=== PATIENT | male | born 1940 | race African-American/Black ===

== ENCOUNTER 2016-09-22 08:53 | Inpatient (IN) ==
[2016-09-22] MEDS ORDERED: ONDANSETRON 4 MG/2 ML VIAL IV PRN (09:05)
[2016-09-22] MEDS ORDERED: GLUCAGON 1 MG VIAL IM PRN (09:05)
[2016-09-22 10:52] LABS: Basophils % 0.4 % (0.0-0.8); Eosinophils % 8.9 % (0.00-10.9); Hematocrit 40.4 VOL% (42.0-52.0); Hemoglobin 13.3 GM/DL (14.0-18.0); Immature Granulocytes % 1.2 %; Immature Granulocytes Absolute 0.13 #; Lymphocytes # 1.8 10*3/uL (1.4-4.0); Lymphocytes % 15.8 % (21.2-54.2); Mean Corpuscular HGB Conc 32.9 GM/DL (32-36); Mean Corpuscular Hemoglobin 26 PG (27-34); Mean Platelet Volume 11.9 FL (9.6-12.0); Monocytes # 1.2 10*3/uL (0.11-0.8); Monocytes % 10.6 % (1.7-12.7); Neutrophils % 63.1 % (38.7-73.9); Platelet Count 173 T/CUMM (130-400); Red Blood Count 5.05 MC/CUMM (3.8-5.5); Red Cell Distribution Width 15.6 % (9.3-17.3); White Blood Count 11.1 T/CUMM (4-12)
[2016-09-22] MEDS: SODIUM CHLORIDE 0.9% 1,000 ML IV SCH ×2 (10:59→19:06)
[2016-09-22 11:32] LABS: Albumin 3.7 G/DL (3.4-5.0); Bilirubin,Total 0.7 MG/DL (0.2-1.0); Calcium 9.5 MG/DL (8.5-10.1); Osmolality,Calculated 307.8 MOS/KG (273-304); Potassium 3.9 MMOL/L (3.5-5.1); Total Protein 6.7 G/DL (6.4-8.3)
--- NOTE | 2016-09-22 12:20 | XRay Report ---
XR chest 2V Indication: Shortness of breath Comparison: None available Findings: The heart and mediastinum are normal in size and configuration. The pulmonary vascularity is normal in caliber. Linear density is present in the left lung base. No other lung infiltrates, effusions, pneumothorax or other abnormality is demonstrated. Impression: Linear density left lung base, may indicate scarring or atelectasis. No other abnormality seen. PROCEDURE INTERPRETED AT [facility] DEPARTMENT OF RADIOLOGY Final Report Signed by: Dr. Wil Greenwood
[2016-09-22] MEDS: INSULIN REGULAR 100 UNIT/ML SUBCUT SCH ×3 (12:44→21:49)
--- NOTE | 2016-09-22 14:01 | Family Practice History&Phys ---
Assessment and Plan (1) Extreme hyperglycemia Status: Acute Assessment and plan: Patient has a new onset of type 2 diabetes mellitus with blood sugar in the 600 range. Will admit for control of diabetes and further evaluation. Have ordered a beta hydroxybutyric acid to check for acidosis Current Visit: Yes (2) Volume depletion secondary to diabetus Status: Acute Assessment and plan: We will start IV rehydration and evaluate further. Current Visit: Yes (3) Renal insufficiency Status: Acute Assessment and plan: New onset renal insufficiency. Hopefully this will improve with volume replacement. We will monitor closely and evaluate further as needed Current Visit: Yes (4) Weakness and weight loss Status: Acute Assessment and plan: Most of these changes are probably secondary to the extreme elevated blood sugars. Will monitor closely Current Visit: Yes (5) Acute cervical pain Status: Acute Assessment and plan: We will obtain x-rays of the cervical spine and monitor Current Visit: Yes (6) Hyperuricemia Status: Chronic Assessment and plan: We will continue present treatment plan. This has been stable Current Visit: Yes (7) Hypertension gastroesophageal reflux Status: Chronic Assessment and plan: Stable at present Current Visit: Yes History of Present Illness Chief complaint: Extreme hyperglycemia with volume depletion History of present illness: Mr. Gleason is a 76 year old male Patient is a 76-year-old black male well-known to me who was seen in the clinic complaining of some left neck pain, weakness, and weight loss. I had not seen the patient in over a year. He apparently had been seeing a physician closer to his home who works through the [facility] [employer] [facility]. Patient nor remember if he has had any lab done in the last year. Patient was seen for his neck pain and apparently has had a recent rash on arms and legs which was treated by Dr. Casey a local supervisor [employer]. I do not have access to those records from me the physician. I am not sure if patient received steroids for treatment of his dermatitis which certainly could explain the extreme elevation of his blood sugar. states that patient has been lethargic and sleeping most of the time over the last several weeks. She thinks that he has lost around 15-20 pounds. No previous history of diabetes but does have a family history of diabetes. I obtain lab studies in the office and his sugar was a 660. Hemoglobin A1c was at 9.2 which equates to a blood sugar of 217 on average. states that he has taken various medicines for this rash and I would be suspicious again that he was possibly given steroids which would have exacerbated his condition. He was also noted to have a elevated creatinine at 2.6 which is new for this patient. Hopefully this is related to volume depletion and will correct but will need to monitor and evaluate closely. In view of the extreme shiver and symptoms patient was seen this a.m. and I am admitting him for control of his diabetes further evaluation and IV fluid. Home Medications Medication Instructions Recorded Confirmed Type Allopurinol 300 mg PO DAILY 09/22/16 09/22/16 History Aspirin [Aspirin EC] 81 mg PO DAILY 09/22/16 09/22/16 History Bisoprolol/Hctz 5-6.25 [Ziac 5 - 6.25 mg PO DAILY 09/22/16 09/22/16 History 5-6.25] Brimonidine 0.2% Oph Soln 1 drop BOTH EYES TID 09/22/16 09/22/16 History [Alphagan P 0.2% Oph Soln] Dorzolamide HCl/Timolol Maleat 1 drop BOTH EYES BEDTIME 09/22/16 09/22/16 History [Dorzolamide/Timolol Oph Soln] Ranitidine Tab [Zantac Tab] 150 mg PO BID 09/22/16 09/22/16 History cloNIDine TAB [Catapres Tab] 0.2 mg PO BEDTIME 09/22/16 09/22/16 History hydrOXYzine HCl [Hydroxyzine HCl] 25 mg PO QID PRN 09/22/16 09/22/16 History Allergies Allergy/AdvReac Type Severity Reaction Status Date / Time No Known Allergies Allergy Verified 09/22/16 10:12 Medical,Surgical,& Family Hx - Medical History Cardio: History of: Hypertension Endocrine: History of: Diabetes Mellitus (NIDDM) Renal: History of: Renal Failure Gastrointestinal: History of: GI Problems (ulcer) - Family History Family History: Reports;: Family Diabetes (mom), Family Hypertension - Social History Smoking Status: Never smoker Frequency of Alcohol Use: None Type of Drug Use: None Marital Status: Lives With:: Spouse Functional capacity: independent ambulation Exam - Constitutional Vitals: Period Temp Pulse Resp BP Sys/Rolon Pulse Ox Last 24 Hr 96.6 F 74 19 161/79 100 General appearance: no acute distress - Head Head exam: Present: normal inspection - Eye Pupils: Present: JUNE - ENT ENT exam: Present: normal exam - Neck Neck exam: Present: normal inspection, other (Patient has tenderness on palpation over the lateral left neck over the region of the thoracic process of the mid cervical region) - Respiratory Respiratory exam: Present: clear to auscultation bilaterally - Cardiovascular Cardiovascular exam: Present: regular rate and rhythm - GI/Abdominal GI/Abdominal exam: Present: normal bowel sounds, soft - Extremities Exam Extremities exam: Present: normal inspection - Back Exam Back exam: Present: normal inspection - Neurological Exam Neurological exam: Present: alert, oriented X3 - Psychiatric Psychiatric exam: Present: normal affect - Skin Skin exam: Present: dry Results - Labs CBC & BMP: 09/22/16 10:44 09/22/16 10:44
[2016-09-22] MEDS: BISOPROLOL/HCTZ 5-6.25 MG TABLET PO SCH (14:37)
[2016-09-22] MEDS: ALLOPURINOL 300 MG TABLET PO SCH (14:37)
[2016-09-22] MEDS: ASPIRIN EC 81 MG TABLET PO SCH (14:37)
[2016-09-22] MEDS: BRIMONIDINE 0.2% OPH SOLN 5 ML BOTTLE BOTH EYES SCH ×2 (14:38→21:48)
--- NOTE | 2016-09-22 15:42 | Ultrasound Report ---
Exam: US renal Bilateral Date: 09/22/2016 2:17 PM Indication: New onset renal insufficiency Comparison: None Findings: Right kidney. 8.9 x 4.6 x 3.7 cm Left kidney. 8.4 x 4.9 x 4.9 cm. There is no obvious hydronephrosis or perinephric fluid collection within either kidney with increased echogenicity of present bilaterally. Impression: 1. Medical renal disease in the kidneys bilaterally Ultrasound images were stored and captured PROCEDURE INTERPRETED AT [facility] DEPARTMENT OF RADIOLOGY Final Report Signed by: Dr. Steven Borges
--- NOTE | 2016-09-22 15:43 | XRay Report ---
Exam: XR cervical spine complete Date: 09/22/2016 2:12 PM Indication: Pain Comparison: None Technical: AP lateral oblique image open-mouth odontoid view Findings: 7 cervical vertebral bodies are demonstrated. There is disc space narrowing and degenerative spondylosis C5-6 and C6-7. Vertebral body heights are maintained. Lateral masses and odontoid are intact the neural foramina canals are patent bilaterally. Posterior elements are intact. No prevertebral soft tissue abnormality. Lung apices are unremarkable. Impression: 1. Degenerative spondylosis and intervertebral discogenic disease at C5-6 and C6-7 2. No fracture dislocation If additional imaging is warranted MRI is recommended PROCEDURE INTERPRETED AT [facility] DEPARTMENT OF RADIOLOGY Final Report Signed by: Dr. Steven Borges
[2016-09-22 16:47] LABS: Apearance,Urine CLEAR (Clear); Bilirubin,Urine Negative (Negative); Blood, Urine Moderate mg/dL (Negative); Glucose,Urine (UA) >=500 mg/dL (Negative); Ketones,Urine Negative (Negative); Nitrite,Urine Negative (Negative); Protein,Urine Negative; RBC,Urine <1 /HPF (0-4); Squamous Epithelial Cell,Urine Occasional /HPF (0-10); Urine Color Straw (Yellow); Urine Specific Gravity 1.021 (1.001-1.035); WBC,Urine 1 /HPF (0-6)
[2016-09-22] MEDS: glyBURIDE 5 MG TABLET PO SCH (17:00)
[2016-09-22] MEDS: DOCUSATE SODIUM 100 MG CAPSULE PO SCH (21:46)
[2016-09-22] MEDS: INSULIN GLARGINE 100 UNIT/ML SUBCUT SCH (21:47)
[2016-09-22] MEDS: hydrOXYzine HCL 25 MG TABLET PO PRN (21:48)
[2016-09-22] MEDS: DORZOLAMIDE/TIMOLOL OPH SOLN 10 ML BOTTLE BOTH EYES SCH (21:48)
[2016-09-23 04:48] LABS: Risk Ratio 2.94; VLDL CHOLESTEROL 28.4 MG/DL
[2016-09-23 05:21] LABS: Albumin 2.6 G/DL (3.4-5.0); Bilirubin,Total 0.5 MG/DL (0.2-1.0); Calcium 7.9 MG/DL (8.5-10.1); Potassium 3.6 MMOL/L (3.5-5.1); Total Protein 4.6 G/DL (6.4-8.3)
[2016-09-23 05:30] LABS: Free T4 (Free Thyroxine) 2.34 NG/DL (0.76-1.46); Thyroid Stimulating Hormone 0.018 uIU/ml (0.358-3.74)
--- NOTE | 2016-09-23 07:46 | Family Practice Progress Note ---
Family Practice - PN: Subj Interval history: Patient came in last night with episode of severe hypoglycemia and glycosuria. He was nonketotic. His CBC was normal and he also had significant renal insufficiency with creatinine 2.60. This has come down to 2.2 this morning, a great improvement. His blood sugars are back down to 175 at this time but still highly fluctuating. Is alert and arousable easily. His vital signs are stable at present with a blood pressure 124/58 and he is afebrile. We will continue to continue to monitor throughout the day watch his blood sugars carefully Exam (Progress Note) - Constitutional Vitals: Period Temp Pulse Resp BP Sys/Rolon Pulse Ox Last 24 Hr 96.6 F-98.7 F 72-81 18-20 107-161/55-91 98-100 Exam: Generally stable no acute distress at this time blood sugar last one was 231 HEENT neck is supple trachea midline Cardiovascular rate is regular no gallop or rub 106 systolic ejection murmur Lungs clear bilaterally except for a few basal rales Abdomen soft nondistended Extremities no clubbing cyanosis or edema Results - Labs CBC & BMP: 09/22/16 10:44 09/23/16 02:23 Assessment and Plan (1) Extreme hyperglycemia Status: Acute Assessment and plan: 09/23/2016 continue to watch his sugars on sliding scale. Current Visit: Yes (2) Weakness and weight loss Status: Acute Assessment and plan: 09/23/2016 we will monitor weight tomorrow continue slowly introduce feedings as patient tolerates Current Visit: Yes
[2016-09-23] MEDS: glyBURIDE 5 MG TABLET PO SCH ×2 (08:42→17:04)
[2016-09-23] MEDS: INSULIN REGULAR 100 UNIT/ML SUBCUT SCH ×4 (09:09→21:18)
[2016-09-23] MEDS: ASPIRIN EC 81 MG TABLET PO SCH (09:42)
[2016-09-23] MEDS: BISOPROLOL/HCTZ 5-6.25 MG TABLET PO SCH (09:42)
[2016-09-23] MEDS: BRIMONIDINE 0.2% OPH SOLN 5 ML BOTTLE BOTH EYES SCH ×3 (09:42→21:08)
[2016-09-23] MEDS: DOCUSATE SODIUM 100 MG CAPSULE PO SCH ×2 (09:42→21:08)
[2016-09-23] MEDS: PANTOPRAZOLE 40 MG TABLET PO SCH (09:42)
[2016-09-23] MEDS: ALLOPURINOL 300 MG TABLET PO SCH (09:43)
[2016-09-23] MEDS: SODIUM CHLORIDE 0.9% 1,000 ML IV SCH ×3 (11:52→18:56)
[2016-09-23 13:54] LABS: Apearance,Urine CLEAR (Clear); Bilirubin,Urine Negative (Negative); Blood, Urine Moderate mg/dL (Negative); Glucose,Urine (UA) 150 mg/dL (Negative); Ketones,Urine Negative (Negative); Mucus,Urine Occasional /LPF (Occasional); Nitrite,Urine Negative (Negative); Protein,Urine Negative; Squamous Epithelial Cell,Urine Occasional /HPF (0-10); Urine Color Yellow (Yellow); Urine Specific Gravity 1.014 (1.001-1.035); Urine Urobilinogen < 2.0 EU/DL (0.2-1.0); WBC,Urine 1 /HPF (0-6)
[2016-09-23] MEDS: hydrOXYzine HCL 25 MG TABLET PO PRN (21:08)
[2016-09-23] MEDS: DORZOLAMIDE/TIMOLOL OPH SOLN 10 ML BOTTLE BOTH EYES SCH (21:08)
[2016-09-23] MEDS: INSULIN GLARGINE 100 UNIT/ML SUBCUT SCH (21:18)
[2016-09-24] MEDS: SODIUM CHLORIDE 0.9% 1,000 ML IV SCH ×5 (03:09→16:20)
[2016-09-24] MEDS ORDERED: FLUCONAZOLE 150 MG TABLET PO ONE (07:49)
[2016-09-24] MEDS ORDERED: INSULIN GLARGINE 100 UNIT/ML SUBCUT SCH (07:52)
--- NOTE | 2016-09-24 08:43 | Family Practice Progress Note ---
Family Practice - PN: Subj Interval history: Patient seen this morning. He is stable hemodynamically. Blood sugar still running a little high we will going to increase his long-acting insulin by 3 units. (Up to 18 units daily) will continue him on sliding scale. He does have a skin rash and I am going to give him some Claritin for this as well as continue his cream is currently taking. Is afebrile at this time weight is slightly down. He is voiding well vital signs are otherwise stable. Exam (Progress Note) - Constitutional Vitals: Period Temp Pulse Resp BP Sys/Rolon Pulse Ox Last 24 Hr 96.7 F-99.5 F 79-91 18-20 103-152/64-74 98-100 Exam: Generally stable no acute distress at this time blood sugar last one was 231 HEENT neck is supple trachea midline Cardiovascular rate is regular no gallop or rub 106 systolic ejection murmur Lungs clear bilaterally except for a few basal rales Abdomen soft nondistended Extremities no clubbing cyanosis or edema Skin is with a generalized rash which is somewhat pruritic Results - Labs CBC & BMP: 09/22/16 10:44 09/23/16 02:23 Assessment and Plan (1) Extreme hyperglycemia Status: Acute Assessment and plan: 09/23/2016 continue to watch his sugars on sliding scale. Current Visit: Yes (2) Weakness and weight loss Status: Acute Assessment and plan: 09/23/2016 we will monitor weight tomorrow continue slowly introduce feedings as patient tolerates Current Visit: Yes
[2016-09-24] MEDS: ALLOPURINOL 300 MG TABLET PO SCH (09:13)
[2016-09-24] MEDS: DOCUSATE SODIUM 100 MG CAPSULE PO SCH ×2 (09:13→20:31)
[2016-09-24] MEDS: ASPIRIN EC 81 MG TABLET PO SCH (09:14)
[2016-09-24] MEDS: BISOPROLOL/HCTZ 5-6.25 MG TABLET PO SCH (09:14)
[2016-09-24] MEDS: glyBURIDE 5 MG TABLET PO SCH ×2 (09:14→16:38)
[2016-09-24] MEDS: PANTOPRAZOLE 40 MG TABLET PO SCH (09:15)
[2016-09-24] MEDS: BRIMONIDINE 0.2% OPH SOLN 5 ML BOTTLE BOTH EYES SCH ×3 (09:16→20:31)
[2016-09-24] MEDS: INSULIN REGULAR 100 UNIT/ML SUBCUT SCH ×4 (09:27→20:32)
[2016-09-24] MEDS: LORATADINE 10 MG TABLET PO SCH (09:27)
[2016-09-24] MEDS: hydrOXYzine HCL 25 MG TABLET PO PRN (20:31)
[2016-09-24] MEDS: DORZOLAMIDE/TIMOLOL OPH SOLN 10 ML BOTTLE BOTH EYES SCH (20:31)
[2016-09-24] MEDS: DEXTROSE 50% 25 GM/50 ML VIAL IV PRN (23:28)
[2016-09-25] MEDS: DEXTROSE 50% 25 GM/50 ML VIAL IV PRN (04:23)
--- NOTE | 2016-09-25 06:54 | Physician Query Form ---
CLICK EDIT DOCUMENT TO SELECT QUERY ANSWER --> OK --> SIGN PROVIDERS: Make your selection(s) from the choices in EACH section by typing an "x" and enter comments in the comment section. Please use your independent medical judgment in providing your response. This request does not imply that any particular answer is desired or expected. CLINICAL INDICATORS: (Providers should not edit this section) "He was also noted to have a elevated creatinine at 2.6 which is new for this patient. Hopefully this is related to volume depletion and will correct but will need to monitor and evaluate closely." -----Treated with IVF's. Clarify which of the following most accurately represents the patient's renal status: ( ) Acute kidney injury (non-traumatic) ( ) Acute renal failure (x ) Acute renal failure with underlying Chronic Kidney Disease (CKD) - please provide stage below ( ) Acute renal failure with pathological renal lesion ( ) Acute renal failure with necrosis ( ) tubular ( ) medullary ( ) cortical ( ) CKD - please provide stage below ( ) Other, please specify: ( ) Clinically unable to determine Chronic Kidney Disease Stages Source: National Kidney Disease Foundation ( ) Stage I (eGFR > or = 90) ( ) Stage II (eGFR 60 - 89) ( x) Stage III (eGFR 30 - 59) ( ) Stage IV (eGFR 15 - 29) ( ) Stage V (eGFR < 15 or dialysis) COMMENTS: Use of terms such as suspected, likely, or probable (associated with a specific diagnosis that is being evaluated, monitored, or treated as if it exists) are acceptable and can be restated in the discharge summary if not ruled out. MTDD
[2016-09-25] MEDS ORDERED: INSULIN GLARGINE 100 UNIT/ML SUBCUT SCH (08:32)
--- NOTE | 2016-09-25 08:35 | Family Practice Progress Note ---
Family Practice - PN: Subj Interval history: Patient states she generally feels much better overall. Blood sugars are much better controlled. On discussion with patient states that he has no one is going to be able to administer his Lantus at home. Does not have any family members or neighbors that could give the Lantus and he states he is not capable because of his vision. We will try to switch to oral medications. His creatinine remains elevated at 2.2 with a BUN of 38. Will consult nephrology. I was hoping that creatinine would correct with IV fluids but it has remained elevated. Thyroid is also hyperthyroid. Will order a thyroid ultrasound and possibly will need a thyroid scan. Will repeat thyroid studies in a.m.. Encourage patient increase activity. Hopefully can find oral medications that will control his blood sugar Exam (Progress Note) - Constitutional Vitals: Period Temp Pulse Resp BP Sys/Rolon Pulse Ox Last 24 Hr 97.1 F-99.9 F 83-108 18-20 127-148/65-90 96-100 Results - Labs CBC & BMP: 09/22/16 10:44 09/23/16 02:23 Assessment and Plan (1) Extreme hyperglycemia Status: Acute Assessment and plan: Patient has a new onset of type 2 diabetes mellitus with blood sugar in the 600 range. Will admit for control of diabetes and further evaluation. Have ordered a beta hydroxybutyric acid to check for acidosis Current Visit: Yes (2) Volume depletion secondary to diabetus Status: Acute Assessment and plan: We will start IV rehydration and evaluate further. Current Visit: Yes (3) Renal insufficiency Status: Acute Assessment and plan: New onset renal insufficiency. Hopefully this will improve with volume replacement. We will monitor closely and evaluate further as needed Current Visit: Yes (4) Weakness and weight loss Status: Acute Assessment and plan: Most of these changes are probably secondary to the extreme elevated blood sugars. Will monitor closely Current Visit: Yes (5) Acute cervical pain Status: Acute Assessment and plan: We will obtain x-rays of the cervical spine and monitor Current Visit: Yes (6) Hyperuricemia Status: Chronic Assessment and plan: We will continue present treatment plan. This has been stable Current Visit: Yes (7) Hypertension gastroesophageal reflux Status: Chronic Assessment and plan: Stable at present Current Visit: Yes
--- NOTE | 2016-09-25 08:59 | Ultrasound Report ---
US thyroid Indication: Hypothyroidism. Comparison: None. Technique: Using transcutaneous probe, routine thyroid ultrasound was performed. Ultrasound images were captured and stored. Findings: The right thyroid lobe measures 3.5 x 1.6 x 1.3 cm. The left thyroid measures 3.3 x 1.3 x 1.2 cm. The isthmus measures 3-4 mm. Echotexture of each thyroid lobe is minimally heterogeneous in appearance. A small 2 to 3 mm hypoechoic nodule within the left thyroid lobe is suggested. Imaging features are not particularly aggressive in appearance. Color Doppler demonstrates symmetric flow bilaterally within the thyroid gland. Impression: 1. Nonspecific heterogeneity of the thyroid lobe echotexture is present. 2. 2 mm hypoechoic nodule possibly cystic has no particularly aggressive imaging features. Follow-up ultrasound in 6 months to 1 year is recommended to assess stability. 09/25/2016 8:55 AM PROCEDURE INTERPRETED AT [facility] DEPARTMENT OF RADIOLOGY Final Report Signed by: Dr. Darwin Downey
[2016-09-25] MEDS: ALLOPURINOL 300 MG TABLET PO SCH (09:09)
[2016-09-25] MEDS: ASPIRIN EC 81 MG TABLET PO SCH (09:09)
[2016-09-25] MEDS: INSULIN REGULAR 100 UNIT/ML SUBCUT SCH ×4 (09:09→21:08)
[2016-09-25] MEDS: BISOPROLOL/HCTZ 5-6.25 MG TABLET PO SCH (09:10)
[2016-09-25] MEDS: sitaGLIPtin 25 MG TABLET PO SCH (09:10)
[2016-09-25] MEDS: DOCUSATE SODIUM 100 MG CAPSULE PO SCH ×2 (09:10→21:08)
[2016-09-25] MEDS: PANTOPRAZOLE 40 MG TABLET PO SCH (09:10)
[2016-09-25] MEDS: LORATADINE 10 MG TABLET PO SCH (09:11)
[2016-09-25] MEDS: glyBURIDE 5 MG TABLET PO SCH ×2 (09:11→16:39)
[2016-09-25] MEDS: BRIMONIDINE 0.2% OPH SOLN 5 ML BOTTLE BOTH EYES SCH ×3 (09:13→21:08)
--- NOTE | 2016-09-25 11:07 | Nephrology Consult Note ---
History of Present Illness Chief complaint: CRF History of present illness: Mr. Gleason is a 76 year old male admitted with weakness and weight loss. He was noted to be severely hyperglycemic. Renal function was abnormal on the day of admission. It has improved somewhat with volume repletion but remains abnormal. He denies any obstructive symptoms. No history of nephrolithiasis. Review of his prior record shows creatinine was 1.8 one year ago Home Medications Medication Instructions Recorded Confirmed Type Allopurinol 300 mg PO DAILY 09/22/16 09/22/16 History Aspirin [Aspirin EC] 81 mg PO DAILY 09/22/16 09/22/16 History Bisoprolol/Hctz 5-6.25 [Ziac 5 - 6.25 mg PO DAILY 09/22/16 09/22/16 History 5-6.25] Brimonidine 0.2% Oph Soln 1 drop BOTH EYES TID 09/22/16 09/22/16 History [Alphagan P 0.2% Oph Soln] Dorzolamide HCl/Timolol Maleat 1 drop BOTH EYES BEDTIME 09/22/16 09/22/16 History [Dorzolamide/Timolol Oph Soln] Ranitidine Tab [Zantac Tab] 150 mg PO BID 09/22/16 09/22/16 History cloNIDine TAB [Catapres Tab] 0.2 mg PO BEDTIME 09/22/16 09/22/16 History hydrOXYzine HCl [Hydroxyzine HCl] 25 mg PO QID PRN 09/22/16 09/22/16 History Allergies Allergy/AdvReac Type Severity Reaction Status Date / Time No Known Allergies Allergy Verified 09/22/16 10:12 Medical,Surgical,& Family Hx - Medical History Cardio: History of: Hypertension Endocrine: History of: Diabetes Mellitus (NIDDM) Renal: History of: Renal Failure Gastrointestinal: History of: GI Problems (ulcer) - Family History Family History: Reports;: Family Diabetes (mom), Family Hypertension - Social History Smoking Status: Never smoker Frequency of Alcohol Use: None Type of Drug Use: None Review of Systems 12 point system: reviewed and no additional remarkable complaints except as stated Exam - Vital Signs Vital signs: Period Temp Pulse Resp BP Sys/Rolon Pulse Ox Last 24 Hr 97.1 F-99.9 F 83-101 18-20 127-148/65-90 96-100 Exam: Gen.: Alert and oriented x3. ENT: Pupils equal round reactive to light. EOMs intact. Mucous membranes moist. Neck: Supple. No JVD or bruit. Cardiovascular: Regular rate and rhythm. No murmur rub or gallop Lungs: Clear Abdomen: Soft. Nontender. Positive bowel sounds. No organomegaly Extremities: No edema Results - Labs CBC & BMP: 09/22/16 10:44 09/23/16 02:23 Assessment and Plan (1) Chronic kidney disease, stage III (moderate) Status: Acute Assessment and plan: 76-year-old man admitted with: * New onset diabetes mellitus * Volume depletion. This has improved * CRF stage III. Renal ultrasound shows increased echogenicity. He has no significant proteinuria. Creatinine was 1.8 one year ago. Current level of 2.2 this likely is baseline. He is on no nephrotoxic medications. He should avoid metformin for diabetes. He should avoid NSAIDs * Hypertension. Controlled Current Visit: Yes (2) Diabetes mellitus Status: Acute Current Visit: Yes (3) Volume depletion secondary to diabetus Status: Acute Current Visit: Yes (4) Weakness and weight loss Status: Acute Current Visit: Yes
[2016-09-25] MEDS: SODIUM CHLORIDE 0.9% 1,000 ML IV SCH (16:42)
[2016-09-25] MEDS: DORZOLAMIDE/TIMOLOL OPH SOLN 10 ML BOTTLE BOTH EYES SCH (21:08)
[2016-09-25] MEDS: DESITIN 4OZ/NYSTATIN 15 GRAM MIXTURE PASTE TOP SCH (22:10)
[2016-09-26 06:23] LABS: Basophils % 0.4 % (0.0-0.8); Eosinophils # 0.9 10*3/uL (0.0-0.87); Eosinophils % 8.4 % (0.00-10.9); Hematocrit 38.4 VOL% (42.0-52.0); Hemoglobin 12.5 GM/DL (14.0-18.0); Immature Granulocytes % 1.7 %; Immature Granulocytes Absolute 0.19 #; Lymphocytes # 1.5 10*3/uL (1.4-4.0); Lymphocytes % 13.3 % (21.2-54.2); Mean Corpuscular HGB Conc 32.6 GM/DL (32-36); Mean Corpuscular Hemoglobin 26 PG (27-34); Mean Corpuscular Volume 80.3 FL (87-102); Mean Platelet Volume 11.9 FL (9.6-12.0); Monocytes # 1.2 10*3/uL (0.11-0.8); Monocytes % 11.1 % (1.7-12.7); Neutrophils # 7.3 10*3/uL (1.4-7.4); Neutrophils % 65.1 % (38.7-73.9); Platelet Count 132 T/CUMM (130-400); Red Blood Count 4.78 MC/CUMM (3.8-5.5); Red Cell Distribution Width 16.3 % (9.3-17.3); White Blood Count 11.1 T/CUMM (4-12)
[2016-09-26] MEDS: SODIUM CHLORIDE 0.9% 1,000 ML IV SCH ×2 (06:38→06:39)
[2016-09-26 07:00] LABS: Calcium 8.1 MG/DL (8.5-10.1); Osmolality,Calculated 293.4 MOS/KG (273-304); Potassium 3.6 MMOL/L (3.5-5.1)
[2016-09-26] MEDS: BISOPROLOL/HCTZ 5-6.25 MG TABLET PO SCH (08:20)
[2016-09-26] MEDS: ALLOPURINOL 300 MG TABLET PO SCH (08:20)
[2016-09-26] MEDS: PANTOPRAZOLE 40 MG TABLET PO SCH (08:20)
[2016-09-26] MEDS: ASPIRIN EC 81 MG TABLET PO SCH (08:20)
[2016-09-26] MEDS: DOCUSATE SODIUM 100 MG CAPSULE PO SCH ×2 (08:21→21:57)
[2016-09-26] MEDS: sitaGLIPtin 25 MG TABLET PO SCH (08:21)
[2016-09-26] MEDS: LORATADINE 10 MG TABLET PO SCH (08:21)
[2016-09-26] MEDS: glyBURIDE 5 MG TABLET PO SCH ×2 (08:21→16:18)
[2016-09-26] MEDS: INSULIN REGULAR 100 UNIT/ML SUBCUT SCH ×4 (08:22→21:57)
--- NOTE | 2016-09-26 08:25 | Family Practice Progress Note ---
Family Practice - PN: Subj Interval history: Patient states that he continues to improve. His blood sugars have done remarkably well since I have backed off on his long-acting insulin. Discussed with patient and family this a.m. Does not have anyone that can administer insulin at home so I plan to stop his Lantus today and stay with oral meds. If blood sugars reasonably controlled we will plan to discharge in a.m.. Patient' s daughter was present today and states that he did receive high-dose steroids somewhere prior to admission. He was being treated for some type of a dermatitis. This would explain his extreme hyperglycemia on admission. states that she can do the fingerstick blood sugars. Renal status is stable this a.m. Will have patient increase activity today and hopefully can discharge in a.m. if sugars remain stable. Will repeat thyroid levels in a.m. He is slightly hyperthyroid but hope that this is more of a lab error since I have had a number of patients with low TSHs. If not we will plan to do a thyroid scan on discharge. Exam (Progress Note) - Constitutional Vitals: Period Temp Pulse Resp BP Sys/Rolon Pulse Ox Last 24 Hr 97.7 F-100.2 F 94-128 18-21 130-164/62-73 98-100 Results - Labs CBC & BMP: 09/26/16 05:22 09/26/16 05:22 Assessment and Plan (1) Extreme hyperglycemia Status: Acute Assessment and plan: Patient has a new onset of type 2 diabetes mellitus with blood sugar in the 600 range. Will admit for control of diabetes and further evaluation. Have ordered a beta hydroxybutyric acid to check for acidosis Current Visit: Yes (2) Volume depletion secondary to diabetus Status: Acute Assessment and plan: We will start IV rehydration and evaluate further. Current Visit: Yes (3) Renal insufficiency Status: Acute Assessment and plan: New onset renal insufficiency. Hopefully this will improve with volume replacement. We will monitor closely and evaluate further as needed Current Visit: Yes (4) Weakness and weight loss Status: Acute Assessment and plan: Most of these changes are probably secondary to the extreme elevated blood sugars. Will monitor closely Current Visit: Yes (5) Acute cervical pain Status: Acute Assessment and plan: We will obtain x-rays of the cervical spine and monitor Current Visit: Yes (6) Hyperuricemia Status: Chronic Assessment and plan: We will continue present treatment plan. This has been stable Current Visit: Yes (7) Hypertension gastroesophageal reflux Status: Chronic Assessment and plan: Stable at present Current Visit: Yes
[2016-09-26] MEDS: DESITIN 4OZ/NYSTATIN 15 GRAM MIXTURE PASTE TOP SCH ×2 (08:26→21:58)
--- NOTE | 2016-09-26 11:07 | Nephrology Progress Note ---
Nephrology - PN: Subj Interval history: No shortness breath or GI problems. Exam (PN)-Nephrology - Vital Signs Vital signs: Period Temp Pulse Resp BP Sys/Rolon Pulse Ox Last 24 Hr 97.7 F-100.2 F 94-128 18-21 130-164/62-74 98-100 Exam: ENT: Normal Cardiovascular: Regular rate and rhythm. No murmur rub or gallop Lungs: Clear Extremities: No edema - Lab 09/26/16 05:22 09/26/16 05:22 Most recent lab results Calcium 8.1 MG/DL (8.5-10.1) L 09/26/16 05:22 Magnesium 3.0 MG/DL (1.8-2.4) H 09/22/16 10:44 Assessment and Plan (1) Chronic kidney disease, stage III (moderate) Status: Acute Assessment and plan: 76-year-old man admitted with: * New onset diabetes mellitus * Volume depletion. This has improved * CRF stage III. Renal ultrasound shows increased echogenicity. Renal function improved. * Hypertension. Controlled Current Visit: Yes (2) Diabetes mellitus Status: Acute Current Visit: Yes (3) Volume depletion secondary to diabetus Status: Acute Current Visit: Yes (4) Weakness and weight loss Status: Acute Current Visit: Yes
[2016-09-26] MEDS: BRIMONIDINE 0.2% OPH SOLN 5 ML BOTTLE BOTH EYES SCH ×3 (11:26→21:57)
[2016-09-26] MEDS: DORZOLAMIDE/TIMOLOL OPH SOLN 10 ML BOTTLE BOTH EYES SCH (21:57)
[2016-09-27] MEDS: ACETAMINOPHEN 325 MG TABLET PO PRN ×2 (01:10→07:53)
[2016-09-27 06:45] LABS: Calcium 8.1 MG/DL (8.5-10.1); Osmolality,Calculated 295.4 MOS/KG (273-304); Potassium 3.8 MMOL/L (3.5-5.1)
[2016-09-27 07:07] LABS: Free T4 (Free Thyroxine) 2.73 NG/DL (0.76-1.46); Thyroid Stimulating Hormone 0.009 uIU/ml (0.358-3.74)
[2016-09-27] MEDS: INSULIN REGULAR 100 UNIT/ML SUBCUT SCH ×4 (07:56→23:00)
[2016-09-27] MEDS: glyBURIDE 5 MG TABLET PO SCH ×2 (08:44→17:08)
[2016-09-27] MEDS: BISOPROLOL/HCTZ 5-6.25 MG TABLET PO SCH (08:44)
[2016-09-27] MEDS: LORATADINE 10 MG TABLET PO SCH (08:44)
[2016-09-27] MEDS: sitaGLIPtin 100 MG TABLET PO SCH (08:44)
[2016-09-27] MEDS: ALLOPURINOL 300 MG TABLET PO SCH (08:44)
[2016-09-27] MEDS: DOCUSATE SODIUM 100 MG CAPSULE PO SCH ×2 (08:45→23:00)
[2016-09-27] MEDS: hydrOXYzine HCL 25 MG TABLET PO PRN (08:45)
[2016-09-27] MEDS: DESITIN 4OZ/NYSTATIN 15 GRAM MIXTURE PASTE TOP SCH ×2 (08:45→23:00)
[2016-09-27] MEDS: ASPIRIN EC 81 MG TABLET PO SCH (08:45)
[2016-09-27] MEDS: BRIMONIDINE 0.2% OPH SOLN 5 ML BOTTLE BOTH EYES SCH ×3 (08:45→23:00)
[2016-09-27] MEDS: PANTOPRAZOLE 40 MG TABLET PO SCH (08:45)
[2016-09-27 08:58] LABS: Basophils % 0.3 % (0.0-0.8); Mean Corpuscular Hemoglobin 26 PG (27-34); Monocytes # 0.4 10*3/uL (0.11-0.8)
[2016-09-27 09:11] LABS: Eosinophils % 0.3 % (0.00-10.9); Hematocrit 31.4 VOL% (42.0-52.0); Hemoglobin 10.7 GM/DL (14.0-18.0); Immature Granulocytes % 1.1 %; Immature Granulocytes Absolute 0.12 #; Lymphocytes # 0.6 10*3/uL (1.4-4.0); Lymphocytes % 5.2 % (21.2-54.2); Mean Corpuscular HGB Conc 34.1 GM/DL (32-36); Mean Platelet Volume 12.2 FL (9.6-12.0); Monocytes % 3.7 % (1.7-12.7); Neutrophils # 9.5 10*3/uL (1.4-7.4); Neutrophils % 89.4 % (38.7-73.9); Platelet Count 111 T/CUMM (130-400); Red Blood Count 4.08 MC/CUMM (3.8-5.5); Red Cell Distribution Width 16.1 % (9.3-17.3); White Blood Count 10.7 T/CUMM (4-12)
--- NOTE | 2016-09-27 09:16 | XRay Report ---
Exam: Chest 2 views Date: September 27, 2016 at 9:06 AM Comparison: Chest 2 views September 22, 2016 Reason: Fever and cough Findings: The cardiac silhouette is normal in size. There are minimal scattered opacities at both lung bases. This is most consistent with atelectasis, but there could also be pneumonia at the left lung base. No pneumothorax or pleural effusion is identified. The osseous structures appear stable. Impression: There are minimal scattered opacities at both lung bases which have slightly increased. This likely represents atelectasis, but there could also be pneumonia at the left lung base. PROCEDURE INTERPRETED AT [facility] DEPARTMENT OF RADIOLOGY Final Report Signed by: Dr. Chalo Grace
[2016-09-27 09:21] LABS: Band Neutrophils 9 % (0-10); Hypochromasia 1+; Lymphocytes 6 % (20-55); Metamyelocytes 1 %; Microcytosis 1+; Segmented Neutrophils 81 % (50-85); Total Cells Counted 100
[2016-09-27 09:22] LABS: Platelet Estimate Decreased
[2016-09-27 09:29] LABS: Albumin 2.2 G/DL (3.4-5.0); Bilirubin,Total 0.8 MG/DL (0.2-1.0); Calcium 7.9 MG/DL (8.5-10.1); Osmolality,Calculated 293.7 MOS/KG (273-304); Potassium 3.9 MMOL/L (3.5-5.1); Total Protein 4.4 G/DL (6.4-8.3)
[2016-09-27] MEDS: LEVOFLOXACIN INJ 500 MG in PREMIX 1 EACH IV SCH (09:39)
[2016-09-27] MEDS ORDERED: SODIUM CHLORIDE 0.9% 1,000 ML IV ONE (10:08)
--- NOTE | 2016-09-27 10:21 | EKG Report ---
Stationary ECG Study [facility] Test Date: 09/27/2016 10:22:16 AM Pat Name: PAMELA EMERY Department: Room: 220 Gender: M Cable Former: BENJAMIN : 1940 Requested by: Luis Quigley Order Number: [id number] Reading MD: EDSON LOO Intervals [place] Rate: 112 P: 55 OK: 154 QRS: 49 QRSD: 78 T: 61 QT: 320 QTc: 386 Interpretive Statements SINUS TACHYCARDIA ABNORMAL RHYTHM ECG Electronically Signed On 09-29-16 13:22:17 CDT by EDSON LOO [email or web address]
[2016-09-27 11:20] LABS: Amorphous Crystals,Urine Few /HPF (Few); Apearance,Urine CLOUDY (Clear); Bilirubin,Urine Negative (Negative); Blood, Urine Moderate mg/dL (Negative); Glucose,Urine (UA) Negative (Negative); Ketones,Urine 5 mg/dL (Negative); Mucus,Urine Occasional /LPF (Occasional); Nitrite,Urine Negative (Negative); Protein,Urine 30 MG/DL; Sperm,Urine Occasional /HPF (Negative); Squamous Epithelial Cell,Urine Occasional /HPF (0-10); Urine Color Yellow (Yellow); Urine Specific Gravity 1.014 (1.001-1.035); Urine Urobilinogen < 2.0 EU/DL (0.2-1.0)
[2016-09-27] MEDS ORDERED: HYDROCORTISONE 100 MG VIAL IM ONE (11:45)
--- NOTE | 2016-09-27 12:06 | Family Practice Progress Note ---
Family Practice - PN: Subj Interval history: Patient was admitted with new onset type 2 diabetes mellitus. Sugars were in the 600 range on admission. I had not seen the patient in over a year. After questioning patient and family apparently he had been on steroids for treatment of a chronic rash. No previous history of diabetes. I suspect the steroids exacerbated the extreme elevation of his blood sugars. Since admission he has responded well to medications. Initially had started him on insulin but converting him to oral medications as he has no one can give insulin at home. I had planned discharge this a.m. but patient developed temperature 103 during the night. He developed some dyspnea with tachycardia and hypotension. He has had some renal insufficiency which is up in clinic and is stabilized throughout admission. This is being followed by Dr. Shaikh. His lab studies this a.m. are unremarkable except for the elevated creatinine. CBC and urine are unremarkable this a.m. chest x-ray reveals possible atelectasis but no definite pneumonia. EKG reveals sinus tachycardia but no ischemic changes. His thyroid levels have been abnormal consistent with hyperthyroid. Thyroid ultrasound was unremarkable. His levels were not abnormal enough that I would expect this to be a thyroid storm. Clinically his symptoms don't follow the normal thyroid storm pattern. I have ordered blood and urine cultures. Empirically have started Levaquin and low dose vancomycin. I'm going to give him a single dose of Solu-Cortef to see if he possibly has adrenal insufficiency from recent prolonged steroid usage. I have transferred to intensive care since his blood pressures have decreased in spite of a fluid bolus. He is also had some mental confusion. Signs and symptoms are most consistent with sepsis of unknown etiology. Will await results of studies. I have asked Dr. Shaikh to evaluate him this a.m. to see if he has any further suggestions. We will monitor closely and hopefully patient will begin to improve. Exam (Progress Note) - Constitutional Vitals: Period Temp Pulse Resp BP Sys/Rolon Pulse Ox Last 24 Hr 98.7 F-103.0 F 101-129 20-22 78-158/47-96 93-100 Results - Labs CBC & BMP: 09/27/16 08:43 09/27/16 08:43 Assessment and Plan (1) Extreme hyperglycemia Status: Acute Assessment and plan: Patient has a new onset of type 2 diabetes mellitus with blood sugar in the 600 range. Will admit for control of diabetes and further evaluation. Have ordered a beta hydroxybutyric acid to check for acidosis Current Visit: Yes (2) Volume depletion secondary to diabetus Status: Acute Assessment and plan: We will start IV rehydration and evaluate further. Current Visit: Yes (3) Renal insufficiency Status: Acute Assessment and plan: New onset renal insufficiency. Hopefully this will improve with volume replacement. We will monitor closely and evaluate further as needed Current Visit: Yes (4) Weakness and weight loss Status: Acute Assessment and plan: Most of these changes are probably secondary to the extreme elevated blood sugars. Will monitor closely Current Visit: Yes (5) Acute cervical pain Status: Acute Assessment and plan: We will obtain x-rays of the cervical spine and monitor Current Visit: Yes (6) Hyperuricemia Status: Chronic Assessment and plan: We will continue present treatment plan. This has been stable Current Visit: Yes (7) Hypertension gastroesophageal reflux Status: Chronic Assessment and plan: Stable at present Current Visit: Yes
[2016-09-27] MEDS ORDERED: SODIUM CHLORIDE 0.9% 1,000 ML IV SCH (12:30)
[2016-09-27] MEDS ORDERED: VANCOMYCIN INJ 500 MG in SODIUM CHLORIDE 0.9% 100 ML IV ONE (13:00)
--- NOTE | 2016-09-27 18:00 | Nephrology Progress Note ---
Nephrology - PN: Subj Interval history: He developed fever and hypotension this morning. He was transferred to the ICU. He is alert. He denies shortness of breath or cough chest pain or abdominal pain. He's had no dysuria Exam (PN)-Nephrology - Vital Signs Vital signs: Period Temp Pulse Resp BP Sys/Rolon Pulse Ox Last 24 Hr 98.1 F-103.0 F 89-129 15-22 78-158/47-96 96-100 Exam: ENT: Normal Cardiovascular: Regular rate and rhythm. No murmur rub or gallop Lungs: Clear Extremities: No edema - Lab 09/27/16 08:43 09/27/16 08:43 Most recent lab results Calcium 7.9 MG/DL (8.5-10.1) L 09/27/16 08:43 Magnesium 3.0 MG/DL (1.8-2.4) H 09/22/16 10:44 Assessment and Plan (1) Chronic kidney disease, stage III (moderate) Status: Acute Assessment and plan: 76-year-old man admitted with: * New onset diabetes mellitus * Hypotension. He was also febrile earlier today. Blood cultures have been drawn. Urinalysis shows no pyuria. Chest x-ray is suspicious for left lower lobe infiltrate. Agree with empiric antibiotics and IV fluid. * CRF stage III. Renal ultrasound shows increased echogenicity. Creatinine higher today due to hypotension Current Visit: Yes (2) Diabetes mellitus Status: Acute Current Visit: Yes (3) Volume depletion secondary to diabetus Status: Acute Current Visit: Yes (4) Weakness and weight loss Status: Acute Current Visit: Yes
[2016-09-27] MEDS: DORZOLAMIDE/TIMOLOL OPH SOLN 10 ML BOTTLE BOTH EYES SCH (23:00)
[2016-09-28 05:51] LABS: Basophils % 0.1 % (0.0-0.8); Eosinophils % 0.2 % (0.00-10.9); Hematocrit 28.8 VOL% (42.0-52.0); Immature Granulocytes % 1.5 %; Immature Granulocytes Absolute 0.23 #; Lymphocytes % 6.6 % (21.2-54.2); Mean Corpuscular HGB Conc 34.7 GM/DL (32-36); Mean Corpuscular Hemoglobin 27 PG (27-34); Mean Corpuscular Volume 76.4 FL (87-102); Mean Platelet Volume 12.9 FL (9.6-12.0); Monocytes # 1.1 10*3/uL (0.11-0.8); Monocytes % 7.6 % (1.7-12.7); Neutrophils # 12.6 10*3/uL (1.4-7.4); Platelet Count 103 T/CUMM (130-400); Red Blood Count 3.77 MC/CUMM (3.8-5.5); Red Cell Distribution Width 16.2 % (9.3-17.3)
--- NOTE | 2016-09-28 06:24 | XRay Report ---
XR chest 2V Indication: Pneumonia Comparison: Chest x-ray 09/27/2016 Technique: PA and lateral chest x-ray was performed. Findings: Improved appearance of the left lower lung is demonstrated. Minimal residual reticular interstitial markings remain present. Nodular density in the lateral aspect of the left chest not previous exam demonstrated may reflect a nipple shadow. Lungs otherwise are clear. Chest is otherwise stable. Impression: 1. Interval partial clearing of the left lung base. 2. Nodular density lateral left lung base not previously demonstrated may represent nipple shadow. 09/28/2016 6:20 AM PROCEDURE INTERPRETED AT [facility] DEPARTMENT OF RADIOLOGY Final Report Signed by: Dr. Darwin Downey
[2016-09-28 06:25] LABS: Hypochromasia 1+; Microcytosis 1+; Platelet Estimate Decreased
[2016-09-28 06:30] LABS: Calcium 7.8 MG/DL (8.5-10.1); Osmolality,Calculated 296.4 MOS/KG (273-304); Potassium 3.5 MMOL/L (3.5-5.1)
[2016-09-28 06:40] LABS: Albumin 1.9 G/DL (3.4-5.0); Bilirubin,Total 0.8 MG/DL (0.2-1.0); Calcium 7.9 MG/DL (8.5-10.1); Free T4 (Free Thyroxine) 2.33 NG/DL (0.76-1.46); Osmolality,Calculated 296.4 MOS/KG (273-304); Potassium 3.5 MMOL/L (3.5-5.1)
--- NOTE | 2016-09-28 07:40 | Family Practice Progress Note ---
Family Practice - PN: Subj Interval history: Patient has done remarkably well. Nursing staff states that he has no current problems. Blood pressures have remained stable throughout the night. Other vitals are stable he has remained afebrile. A.m. labs are unremarkable slight elevation of WBC secondary to steroids. Creatinine is actually improved this a.m. Repeat chest x-ray has improved. Blood and urine cultures are pending. Still not certain exact etiology of his episode. Alert oriented back to normal mental status. Physical exam stable no localizing features. Will transfer back to floor continue present treatment plan. Exam (Progress Note) - Constitutional Vitals: Period Temp Pulse Resp BP Sys/Rolon Pulse Ox Last 24 Hr 98.0 F-103.0 F 89-129 14-24 78-146/47-65 96-100 Results - Labs CBC & BMP: 09/28/16 05:03 09/28/16 05:03 Assessment and Plan (1) Extreme hyperglycemia Status: Acute Assessment and plan: Patient has a new onset of type 2 diabetes mellitus with blood sugar in the 600 range. Will admit for control of diabetes and further evaluation. Have ordered a beta hydroxybutyric acid to check for acidosis Current Visit: Yes (2) Volume depletion secondary to diabetus Status: Acute Assessment and plan: We will start IV rehydration and evaluate further. Current Visit: Yes (3) Renal insufficiency Status: Acute Assessment and plan: New onset renal insufficiency. Hopefully this will improve with volume replacement. We will monitor closely and evaluate further as needed Current Visit: Yes (4) Weakness and weight loss Status: Acute Assessment and plan: Most of these changes are probably secondary to the extreme elevated blood sugars. Will monitor closely Current Visit: Yes (5) Acute cervical pain Status: Acute Assessment and plan: We will obtain x-rays of the cervical spine and monitor Current Visit: Yes (6) Hyperuricemia Status: Chronic Assessment and plan: We will continue present treatment plan. This has been stable Current Visit: Yes (7) Hypertension gastroesophageal reflux Status: Chronic Assessment and plan: Stable at present Current Visit: Yes
[2016-09-28] MEDS: INSULIN REGULAR 100 UNIT/ML SUBCUT SCH ×4 (07:53→21:20)
[2016-09-28] MEDS: LEVOFLOXACIN INJ 500 MG in PREMIX 1 EACH IV SCH (08:01)
[2016-09-28] MEDS: ASPIRIN EC 81 MG TABLET PO SCH (08:01)
[2016-09-28] MEDS: ALLOPURINOL 300 MG TABLET PO SCH (08:01)
[2016-09-28] MEDS: LORATADINE 10 MG TABLET PO SCH (08:01)
[2016-09-28] MEDS: DOCUSATE SODIUM 100 MG CAPSULE PO SCH ×2 (08:01→21:16)
[2016-09-28] MEDS: PANTOPRAZOLE 40 MG TABLET PO SCH (08:01)
[2016-09-28] MEDS: DESITIN 4OZ/NYSTATIN 15 GRAM MIXTURE PASTE TOP SCH ×2 (08:02→21:18)
[2016-09-28] MEDS: BRIMONIDINE 0.2% OPH SOLN 5 ML BOTTLE BOTH EYES SCH ×3 (08:02→21:16)
[2016-09-28] MEDS: sitaGLIPtin 100 MG TABLET PO SCH (08:03)
--- NOTE | 2016-09-28 08:33 | Family Practice Progress Note ---
Family Practice - PN: Subj Interval history: This is an addendum to my previous note. Staff report that blood cultures positive for gram-positive cocci. We will add additional dose of vancomycin and have pharmacy regulate dosage. Will await final culture results Exam (Progress Note) - Constitutional Vitals: Period Temp Pulse Resp BP Sys/Rolon Pulse Ox Last 24 Hr 98.0 F-99.6 F 89-129 14-24 78-146/47-65 96-100 Results - Labs CBC & BMP: 09/28/16 05:03 09/28/16 05:03 Assessment and Plan (1) Extreme hyperglycemia Status: Acute Assessment and plan: Patient has a new onset of type 2 diabetes mellitus with blood sugar in the 600 range. Will admit for control of diabetes and further evaluation. Have ordered a beta hydroxybutyric acid to check for acidosis Current Visit: Yes (2) Volume depletion secondary to diabetus Status: Acute Assessment and plan: We will start IV rehydration and evaluate further. Current Visit: Yes (3) Renal insufficiency Status: Acute Assessment and plan: New onset renal insufficiency. Hopefully this will improve with volume replacement. We will monitor closely and evaluate further as needed Current Visit: Yes (4) Weakness and weight loss Status: Acute Assessment and plan: Most of these changes are probably secondary to the extreme elevated blood sugars. Will monitor closely Current Visit: Yes (5) Acute cervical pain Status: Acute Assessment and plan: We will obtain x-rays of the cervical spine and monitor Current Visit: Yes (6) Hyperuricemia Status: Chronic Assessment and plan: We will continue present treatment plan. This has been stable Current Visit: Yes (7) Hypertension gastroesophageal reflux Status: Chronic Assessment and plan: Stable at present Current Visit: Yes
[2016-09-28] MEDS ORDERED: VANCOMYCIN INJ 1,250 MG in SODIUM CHLORIDE 0.9% 250 ML IV ONE (10:00)
[2016-09-28] MEDS: glyBURIDE 5 MG TABLET PO SCH ×2 (11:00→18:36)
[2016-09-28] MEDS: BISOPROLOL/HCTZ 5-6.25 MG TABLET PO SCH (11:00)
[2016-09-28] MEDS: predniSONE 10 MG TABLET PO SCH (11:00)
--- NOTE | 2016-09-28 12:41 | Nephrology Progress Note ---
Nephrology - PN: Subj Interval history: Mr. Gleason is seen in follow-up of his renal impairment. He has been moved out of the intensive care unit and has a stable blood pressure now he is fully alert. His chest is clear and he has no peripheral edema. Blood cultures are positive for a staph aureus that is not methicillin-resistant. He is received empiric therapy with vancomycin and pharmacy will be dosing that. Hopefully he can be switched from it to another agent once the sensitivities are back. Skin is peeling but he is comfortable. We'll follow. Exam (PN)-Nephrology - Vital Signs Vital signs: Period Temp Pulse Resp BP Sys/Rolon Pulse Ox Last 24 Hr 98.0 F-98.9 F 89-108 14-24 91-146/50-65 96-100 - Lab 09/28/16 05:03 09/28/16 05:03 Most recent lab results Calcium 7.9 MG/DL (8.5-10.1) L 09/28/16 05:03 Magnesium 3.0 MG/DL (1.8-2.4) H 09/22/16 10:44
[2016-09-28] MEDS: DORZOLAMIDE/TIMOLOL OPH SOLN 10 ML BOTTLE BOTH EYES SCH (21:16)
[2016-09-28] MEDS: hydrOXYzine HCL 25 MG TABLET PO PRN (21:16)
[2016-09-29 05:48] LABS: Basophils % 0.1 % (0.0-0.8); Eosinophils # 0.3 10*3/uL (0.0-0.87); Eosinophils % 1.9 % (0.00-10.9); Hematocrit 29.7 VOL% (42.0-52.0); Hemoglobin 10.4 GM/DL (14.0-18.0); Immature Granulocytes % 2.1 %; Immature Granulocytes Absolute 0.33 #; Lymphocytes # 1.1 10*3/uL (1.4-4.0); Lymphocytes % 7.1 % (21.2-54.2); Mean Corpuscular Hemoglobin 26 PG (27-34); Mean Corpuscular Volume 75.2 FL (87-102); Monocytes # 1.3 10*3/uL (0.11-0.8); Monocytes % 8.1 % (1.7-12.7); NRBC # 0.02 10*3/uL; Neutrophils # 12.6 10*3/uL (1.4-7.4); Neutrophils % 80.7 % (38.7-73.9); Platelet Count 105 T/CUMM (130-400); Red Blood Count 3.95 MC/CUMM (3.8-5.5); White Blood Count 15.6 T/CUMM (4-12)
[2016-09-29 06:13] LABS: Eosinophils 3 % (0-10); Lymphocytes 9 % (20-55); Platelet Estimate Adequate; Segmented Neutrophils 83 % (50-85); Total Cells Counted 100
[2016-09-29 06:14] LABS: Osmolality,Calculated 298.3 MOS/KG (273-304); Potassium 3.7 MMOL/L (3.5-5.1)
--- NOTE | 2016-09-29 08:38 | Nephrology Progress Note ---
Nephrology - PN: Subj Interval history: Mr. Gleason is seen in follow-up of his renal impairment. His creatinine is improved to 2.5. He is sitting up at the bedside and has 1-2+ leg edema. His chest is clear is not short of breath. He has no difficulty lying flat and breathing. He still has some peeling skin diffusely. Apparently he has been on allopurinol for quite some time so it seems unlikely that his skin eruption is due to that. No changes are made in his current medicines. He is growing a staph aureus from blood and hopefully sensitivities will return soon and a drug substitution for vancomycin can be made. We will see him next week. Should any renal problems occur over the weekend please call our call coverage. Exam (PN)-Nephrology - Vital Signs Vital signs: Period Temp Pulse Resp BP Sys/Rolon Pulse Ox Last 24 Hr 98.0 F-98.7 F 94-110 18-20 113-138/53-84 96-98 - Lab 09/29/16 04:41 09/29/16 04:41 Most recent lab results Calcium 8.0 MG/DL (8.5-10.1) L 09/29/16 04:41 Magnesium 3.0 MG/DL (1.8-2.4) H 09/22/16 10:44
[2016-09-29] MEDS: INSULIN REGULAR 100 UNIT/ML SUBCUT SCH ×4 (09:33→21:13)
[2016-09-29] MEDS: BISOPROLOL/HCTZ 5-6.25 MG TABLET PO SCH (09:34)
[2016-09-29] MEDS: DOCUSATE SODIUM 100 MG CAPSULE PO SCH ×2 (09:34→21:14)
[2016-09-29] MEDS: PANTOPRAZOLE 40 MG TABLET PO SCH (09:34)
[2016-09-29] MEDS: sitaGLIPtin 100 MG TABLET PO SCH (09:35)
[2016-09-29] MEDS: ALLOPURINOL 300 MG TABLET PO SCH (09:35)
[2016-09-29] MEDS: hydrOXYzine HCL 25 MG TABLET PO PRN (09:35)
[2016-09-29] MEDS: ASPIRIN EC 81 MG TABLET PO SCH (09:35)
[2016-09-29] MEDS: glyBURIDE 5 MG TABLET PO SCH ×2 (09:36→18:34)
[2016-09-29] MEDS: LORATADINE 10 MG TABLET PO SCH (09:36)
[2016-09-29] MEDS: predniSONE 10 MG TABLET PO SCH (09:36)
[2016-09-29] MEDS: LEVOFLOXACIN INJ 500 MG in PREMIX 1 EACH IV SCH (09:37)
[2016-09-29] MEDS: BRIMONIDINE 0.2% OPH SOLN 5 ML BOTTLE BOTH EYES SCH ×3 (09:38→21:13)
[2016-09-29] MEDS: DESITIN 4OZ/NYSTATIN 15 GRAM MIXTURE PASTE TOP SCH ×2 (09:39→21:14)
--- NOTE | 2016-09-29 12:31 | Physician Query Form ---
CLICK EDIT DOCUMENT TO SELECT QUERY ANSWER --> OK --> SIGN Elma Downey RN, CCDS Certified Clinical Char House Supervisor W) [phone] (f) [phone] [email or web address] PROVIDERS: Make your selection(s) from the choices in EACH section by typing an "x" and enter comments in the comment section. Please use your independent medical judgment in providing your response. This request does not imply that any particular answer is desired or expected. CLINICAL INDICATORS: (Providers should not edit this section) The below diagnosis was documented in the record, but is not consistently noted in subsequent documentation. The medical record indicates that the patient was admitted with new onset of MD , WBC of 15.0 on the , 9% Bands on the , Temp to 103 on the , Mostly Tachycardia on the and the on the : "Signs and symptoms are most consistent with sepsis of unknown etiology". Diagnosis: SEPSIS Please clarify the following: ( x) The above diagnosis was monitored, evaluated, and/or treated and is a confirmed diagnosis ( ) The above diagnosis was ruled out ( ) The above diagnosis is still a likely, suspected, probable diagnosis ( ) Other, please specify: ( ) Clinically unable to determine COMMENTS: Use of terms such as suspected, likely, or probable (associated with a specific diagnosis that is being evaluated, monitored, or treated as if it exists) are acceptable and can be restated in the discharge summary if not ruled out. MTDD
--- NOTE | 2016-09-29 12:40 | Physician Query Form ---
CLICK EDIT DOCUMENT TO SELECT QUERY ANSWER --> OK --> SIGN Elma Downey RN, CCDS Certified Clinical Solar Engineer W) [phone] (f) [phone] [email or web address] PROVIDERS: Make your selection(s) from the choices in EACH section by typing an "x" and enter comments in the comment section. Please use your independent medical judgment in providing your response. This request does not imply that any particular answer is desired or expected. CLINICAL INDICATORS: (Providers should not edit this section) The medical record indicates that the patient was admitted with new onset of MD , WBC of 15.0 on the , 9% Bands on the , Temp to 103 on the , Mostly Tachycardia on the AND on the th: "Chest x-ray is suspicious for left lower lobe infiltrate". (XR on the : "There are minimal scattered opacities at both lung bases which have slightly increased. This likely represents atelectasis, but here could also be pneumonia the left lung base"). Community Acquired and Healthcare Acquired are both unspecified terms and require further specificity. Based on the above, could you please clarify further specificity regarding the type of pneumonia you are treating (even if specific organism may not be known) ? ( ) Aspiration pneumonia ( ) Gram negative pneumonia ( ) Gram positive pneumonia ( ) Bacterial pneumonia due to, please specify organism (if known): ( ) Pneumonia with Influenza ( ) Viral pneumonia ( ) Post procedural ( ) HIV associated pneumonia ( ) Radiation Pneumonitis ( ) Pneumonia due to, please specify: (x) Clinically unable to determine ( ) Other, please specify: COMMENTS: Use of terms such as suspected, likely, or probable (associated with a specific diagnosis that is being evaluated, monitored, or treated as if it exists) are acceptable and can be restated in the discharge summary if not ruled out. MTDD
--- NOTE | 2016-09-29 14:30 | Family Practice Progress Note ---
Family Practice - PN: Subj Interval history: Patient is doing well. He is sitting up in the chair alert oriented good appetite. No new problems noted. Patient's cultures revealed 2 blood cultures that are positive for staph aureus MRSA negative. I have discussed with the pharmacist and have recommended nafcillin. He is presently receiving Levaquin which has some coverage for staph aureus but I am going to add the nafcillin in coverage until all final sensitivities are available. Urine is also growing staph aureus which would be the most likely etiology of his sepsis. His blood sugars have been adequately controlled on oral medications and sliding scale. Up slightly today because he has been on steroids but I will stop that today. Plan to continue treatment over the weekend. If cultures permit may switch to oral antibiotics first part of the week. His physical examination is stable today. Will have patient increase ambulation and ambulate in the ferris with family member Exam (Progress Note) - Constitutional Vitals: Period Temp Pulse Resp BP Sys/Rolon Pulse Ox Last 24 Hr 97.4 F-98.7 F 80-105 18-20 113-138/77-84 96-98 Results - Labs CBC & BMP: 09/29/16 04:41 09/29/16 04:41 Assessment and Plan (1) Extreme hyperglycemia Status: Acute Assessment and plan: Patient has a new onset of type 2 diabetes mellitus with blood sugar in the 600 range. Will admit for control of diabetes and further evaluation. Have ordered a beta hydroxybutyric acid to check for acidosis Current Visit: Yes (2) Volume depletion secondary to diabetus Status: Acute Assessment and plan: We will start IV rehydration and evaluate further. Current Visit: Yes (3) Renal insufficiency Status: Acute Assessment and plan: New onset renal insufficiency. Hopefully this will improve with volume replacement. We will monitor closely and evaluate further as needed Current Visit: Yes (4) Weakness and weight loss Status: Acute Assessment and plan: Most of these changes are probably secondary to the extreme elevated blood sugars. Will monitor closely Current Visit: Yes (5) Acute cervical pain Status: Acute Assessment and plan: We will obtain x-rays of the cervical spine and monitor Current Visit: Yes (6) Hyperuricemia Status: Chronic Assessment and plan: We will continue present treatment plan. This has been stable Current Visit: Yes (7) Hypertension gastroesophageal reflux Status: Chronic Assessment and plan: Stable at present Current Visit: Yes
[2016-09-29] MEDS ORDERED: VANCOMYCIN INJ 1,250 MG in SODIUM CHLORIDE 0.9% 250 ML IV ONE (15:00)
[2016-09-29] MEDS: NAFCILLIN 2,000 MG in SODIUM CHLORIDE 0.9% 100 ML IV SCH ×2 (18:27→22:09)
[2016-09-29] MEDS: DORZOLAMIDE/TIMOLOL OPH SOLN 10 ML BOTTLE BOTH EYES SCH (21:13)
[2016-09-30] MEDS: NAFCILLIN 2,000 MG in SODIUM CHLORIDE 0.9% 100 ML IV SCH ×6 (01:30→21:32)
[2016-09-30 06:24] LABS: Basophils % 0.2 % (0.0-0.8); Eosinophils # 0.5 10*3/uL (0.0-0.87); Hematocrit 28.9 VOL% (42.0-52.0); Hemoglobin 9.8 GM/DL (14.0-18.0); Immature Granulocytes % 1.6 %; Immature Granulocytes Absolute 0.21 #; Lymphocytes # 1.4 10*3/uL (1.4-4.0); Mean Corpuscular HGB Conc 33.9 GM/DL (32-36); Mean Corpuscular Hemoglobin 26 PG (27-34); Mean Corpuscular Volume 76.7 FL (87-102); Mean Platelet Volume 12.1 FL (9.6-12.0); Monocytes # 1.4 10*3/uL (0.11-0.8); Monocytes % 10.4 % (1.7-12.7); NRBC # 0.02 10*3/uL; Neutrophils # 9.6 10*3/uL (1.4-7.4); Neutrophils % 72.8 % (38.7-73.9); Platelet Count 119 T/CUMM (130-400); Red Blood Count 3.77 MC/CUMM (3.8-5.5); Red Cell Distribution Width 16.1 % (9.3-17.3); White Blood Count 13.1 T/CUMM (4-12)
[2016-09-30 07:08] LABS: Calcium 8.4 MG/DL (8.5-10.1); Osmolality,Calculated 297.4 MOS/KG (273-304); Potassium 3.1 MMOL/L (3.5-5.1)
[2016-09-30] MEDS: DOCUSATE SODIUM 100 MG CAPSULE PO SCH ×2 (09:45→21:32)
[2016-09-30] MEDS: ASPIRIN EC 81 MG TABLET PO SCH (09:45)
[2016-09-30] MEDS: BISOPROLOL/HCTZ 5-6.25 MG TABLET PO SCH (09:45)
[2016-09-30] MEDS: ALLOPURINOL 300 MG TABLET PO SCH (09:46)
[2016-09-30] MEDS: hydrOXYzine HCL 25 MG TABLET PO PRN (09:46)
[2016-09-30] MEDS: PANTOPRAZOLE 40 MG TABLET PO SCH (09:47)
[2016-09-30] MEDS: LORATADINE 10 MG TABLET PO SCH (09:47)
--- NOTE | 2016-09-30 09:47 | Family Practice Progress Note ---
Family Practice - PN: Subj Interval history: Patient states he is doing well this a.m. Had episode of hypoglycemia during the night. I have decreased his sliding scale. Tolerating antibiotics. Started on nafcillin yesterday based on his positive staph aureus cultures. Encourage patient to increase activity ambulate in ferris when family present. Hopefully can discharge on Sunday. His physical examination is stable Exam (Progress Note) - Constitutional Vitals: Period Temp Pulse Resp BP Sys/Rolon Pulse Ox Last 24 Hr 97.4 F-99.2 F 80-107 16-20 122-179/64-83 96-100 Results - Labs CBC & BMP: 09/30/16 05:52 09/30/16 05:52 Assessment and Plan (1) Extreme hyperglycemia Status: Acute Assessment and plan: Patient has a new onset of type 2 diabetes mellitus with blood sugar in the 600 range. Will admit for control of diabetes and further evaluation. Have ordered a beta hydroxybutyric acid to check for acidosis Current Visit: Yes (2) Volume depletion secondary to diabetus Status: Acute Assessment and plan: We will start IV rehydration and evaluate further. Current Visit: Yes (3) Renal insufficiency Status: Acute Assessment and plan: New onset renal insufficiency. Hopefully this will improve with volume replacement. We will monitor closely and evaluate further as needed Current Visit: Yes (4) Weakness and weight loss Status: Acute Assessment and plan: Most of these changes are probably secondary to the extreme elevated blood sugars. Will monitor closely Current Visit: Yes (5) Acute cervical pain Status: Acute Assessment and plan: We will obtain x-rays of the cervical spine and monitor Current Visit: Yes (6) Hyperuricemia Status: Chronic Assessment and plan: We will continue present treatment plan. This has been stable Current Visit: Yes (7) Hypertension gastroesophageal reflux Status: Chronic Assessment and plan: Stable at present Current Visit: Yes
[2016-09-30] MEDS: DESITIN 4OZ/NYSTATIN 15 GRAM MIXTURE PASTE TOP SCH ×2 (09:48→21:38)
[2016-09-30] MEDS: BRIMONIDINE 0.2% OPH SOLN 5 ML BOTTLE BOTH EYES SCH ×3 (09:48→21:38)
[2016-09-30] MEDS: glyBURIDE 5 MG TABLET PO SCH ×2 (09:53→17:12)
[2016-09-30] MEDS: INSULIN REGULAR 100 UNIT/ML SUBCUT SCH ×4 (09:53→23:42)
[2016-09-30] MEDS: sitaGLIPtin 100 MG TABLET PO SCH (09:54)
[2016-09-30] MEDS: LEVOFLOXACIN INJ 500 MG in PREMIX 1 EACH IV SCH (11:40)
[2016-09-30] MEDS ORDERED: DEXTROSE 50% 25 GM/50 ML VIAL IV PRN (16:48)
[2016-09-30] MEDS ORDERED: GLUCAGON 1 MG VIAL IM PRN (16:48)
[2016-09-30] MEDS: DORZOLAMIDE/TIMOLOL OPH SOLN 10 ML BOTTLE BOTH EYES SCH (21:38)
[2016-10-01] MEDS: NAFCILLIN 2,000 MG in SODIUM CHLORIDE 0.9% 100 ML IV SCH ×2 (02:35→06:20)
[2016-10-01 07:15] LABS: Basophils % 0.2 % (0.0-0.8); Eosinophils # 0.4 10*3/uL (0.0-0.87); Eosinophils % 3.1 % (0.00-10.9); Hematocrit 31.6 VOL% (42.0-52.0); Hemoglobin 10.7 GM/DL (14.0-18.0); Immature Granulocytes % 3.4 %; Immature Granulocytes Absolute 0.42 #; Lymphocytes # 1.3 10*3/uL (1.4-4.0); Lymphocytes % 10.8 % (21.2-54.2); Mean Corpuscular HGB Conc 33.9 GM/DL (32-36); Mean Corpuscular Hemoglobin 26 PG (27-34); Mean Corpuscular Volume 77.5 FL (87-102); Mean Platelet Volume 12.5 FL (9.6-12.0); Monocytes # 1.3 10*3/uL (0.11-0.8); Monocytes % 10.3 % (1.7-12.7); NRBC # 0.03 10*3/uL; Neutrophils % 72.2 % (38.7-73.9); Platelet Count 128 T/CUMM (130-400); Red Blood Count 4.08 MC/CUMM (3.8-5.5); Red Cell Distribution Width 16.6 % (9.3-17.3); White Blood Count 12.4 T/CUMM (4-12)
[2016-10-01] MEDS: INSULIN REGULAR 100 UNIT/ML SUBCUT SCH (07:30)
[2016-10-01 07:37] LABS: Albumin 2.1 G/DL (3.4-5.0); Bilirubin,Total 2.1 MG/DL (0.2-1.0); Calcium 8.3 MG/DL (8.5-10.1); Osmolality,Calculated 297.4 MOS/KG (273-304); Total Protein 4.7 G/DL (6.4-8.3)
[2016-10-01] MEDS: BISOPROLOL/HCTZ 5-6.25 MG TABLET PO SCH (10:08)
[2016-10-01] MEDS: ASPIRIN EC 81 MG TABLET PO SCH (10:08)
[2016-10-01] MEDS: DOCUSATE SODIUM 100 MG CAPSULE PO SCH ×3 (10:08→20:51)
[2016-10-01] MEDS: glyBURIDE 5 MG TABLET PO SCH ×2 (10:09→19:37)
[2016-10-01] MEDS: ALLOPURINOL 300 MG TABLET PO SCH (10:09)
[2016-10-01] MEDS: sitaGLIPtin 100 MG TABLET PO SCH (10:10)
[2016-10-01] MEDS: PANTOPRAZOLE 40 MG TABLET PO SCH (10:10)
[2016-10-01] MEDS: LORATADINE 10 MG TABLET PO SCH (10:10)
[2016-10-01] MEDS: DESITIN 4OZ/NYSTATIN 15 GRAM MIXTURE PASTE TOP SCH ×2 (10:11→20:47)
[2016-10-01] MEDS: BRIMONIDINE 0.2% OPH SOLN 5 ML BOTTLE BOTH EYES SCH ×3 (10:12→20:47)
--- NOTE | 2016-10-01 12:20 | Family Practice Progress Note ---
Family Practice - PN: Subj Interval history: Patient continues to slowly improve. Is sitting up and ambulating. IV infiltrated this a.m. so will switch to oxacillin which can be given IM. Would like to complete course today and will start on oral antibiotics. Blood sugars have continued to run low even on low sliding scale so we will stop sliding scale today. Reviewed her lab and studies. Physical exam is stable. Hopefully can discharge a.m. Exam (Progress Note) - Constitutional Vitals: Period Temp Pulse Resp BP Sys/Rolon Pulse Ox Last 24 Hr 98 F-99.1 F 98-107 18-20 140-162/69-90 98-100 Results - Labs CBC & BMP: 10/01/16 06:47 10/01/16 06:47 Assessment and Plan (1) Extreme hyperglycemia Status: Acute Assessment and plan: Patient has a new onset of type 2 diabetes mellitus with blood sugar in the 600 range. Will admit for control of diabetes and further evaluation. Have ordered a beta hydroxybutyric acid to check for acidosis Current Visit: Yes (2) Volume depletion secondary to diabetus Status: Acute Assessment and plan: We will start IV rehydration and evaluate further. Current Visit: Yes (3) Renal insufficiency Status: Acute Assessment and plan: New onset renal insufficiency. Hopefully this will improve with volume replacement. We will monitor closely and evaluate further as needed Current Visit: Yes (4) Weakness and weight loss Status: Acute Assessment and plan: Most of these changes are probably secondary to the extreme elevated blood sugars. Will monitor closely Current Visit: Yes (5) Acute cervical pain Status: Acute Assessment and plan: We will obtain x-rays of the cervical spine and monitor Current Visit: Yes (6) Hyperuricemia Status: Chronic Assessment and plan: We will continue present treatment plan. This has been stable Current Visit: Yes (7) Hypertension gastroesophageal reflux Status: Chronic Assessment and plan: Stable at present Current Visit: Yes
[2016-10-01] MEDS: OXACILLIN IM SCH ×2 (14:50→20:46)
[2016-10-01] MEDS: SULFAMETHOX/TRIMETHOPRIM 800-160 MG TABLET PO SCH (20:46)
[2016-10-01] MEDS: DORZOLAMIDE/TIMOLOL OPH SOLN 10 ML BOTTLE BOTH EYES SCH (20:47)
[2016-10-02] MEDS: LEVOFLOXACIN INJ 500 MG in PREMIX 1 EACH IV SCH ×2 (00:11→09:11)
[2016-10-02] MEDS: NAFCILLIN 2,000 MG in SODIUM CHLORIDE 0.9% 100 ML IV SCH (00:11)
[2016-10-02] MEDS: INSULIN REGULAR 100 UNIT/ML SUBCUT SCH (00:12)
[2016-10-02] MEDS: OXACILLIN IM SCH ×2 (03:11→09:11)
[2016-10-02 06:38] LABS: Basophils # 0.1 10*3/uL (0.0-0.2); Basophils % 0.4 % (0.0-0.8); Eosinophils # 1.9 10*3/uL (0.0-0.87); Eosinophils % 11.6 % (0.00-10.9); Hematocrit 31.7 VOL% (42.0-52.0); Hemoglobin 10.9 GM/DL (14.0-18.0); Immature Granulocytes % 5.4 %; Lymphocytes # 1.9 10*3/uL (1.4-4.0); Lymphocytes % 11.7 % (21.2-54.2); Mean Corpuscular HGB Conc 34.4 GM/DL (32-36); Mean Corpuscular Hemoglobin 26 PG (27-34); Mean Platelet Volume 11.9 FL (9.6-12.0); Monocytes # 1.6 10*3/uL (0.11-0.8); Monocytes % 9.5 % (1.7-12.7); NRBC # 0.05 10*3/uL; Neutrophils # 10.1 10*3/uL (1.4-7.4); Neutrophils % 61.4 % (38.7-73.9); Platelet Count 149 T/CUMM (130-400); Red Blood Count 4.17 MC/CUMM (3.8-5.5); Red Cell Distribution Width 16.9 % (9.3-17.3); White Blood Count 16.5 T/CUMM (4-12)
[2016-10-02 07:00] LABS: Calcium 8.4 MG/DL (8.5-10.1); Osmolality,Calculated 291.6 MOS/KG (273-304); Potassium 3.7 MMOL/L (3.5-5.1)
[2016-10-02 07:39] LABS: Band Neutrophils 1 % (0-10); Eosinophils 8 % (0-10); Hypochromasia Slight; Lymphocytes 6 % (20-55); Myelocytes 4 %; Platelet Estimate Adequate; Segmented Neutrophils 75 % (50-85); Total Cells Counted 100
[2016-10-02] MEDS: glyBURIDE 5 MG TABLET PO SCH (07:45)
--- NOTE | 2016-10-02 08:31 | Discharge Summary ---
Hospital Course - Hospital Course Hospital Course: ent illness: Mr. Gleason is a 76 year old male Patient is a 76-year-old black male well-known to me who was seen in the clinic complaining of some left neck pain, weakness, and weight loss. I had not seen the patient in over a year. He apparently had been seeing a physician closer to his home who works through the [facility] [employer] system. Patient nor remember if he has had any lab done in the last year. Patient was seen for his neck pain and apparently has had a recent rash on arms and legs which was treated by Dr. Casey a local pole peeler. I do not have access to those records from me the physician. I am not sure if patient received steroids for treatment of his dermatitis which certainly could explain the extreme elevation of his blood sugar. states that patient has been lethargic and sleeping most of the time over the last several weeks. She thinks that he has lost around 15-20 pounds. No previous history of diabetes but does have a family history of diabetes. I obtain lab studies in the office and his sugar was a 660. Hemoglobin A1c was at 9.2 which equates to a blood sugar of 217 on average. states that he has taken various medicines for this rash and I would be suspicious again that he was possibly given steroids which would have exacerbated his condition. He was also noted to have a elevated creatinine at 2.6 which is new for this patient. Hopefully this is related to volume depletion and will correct but will need to monitor and evaluate closely. In view of the extreme shiver and symptoms patient was seen this a.m. and I am admitting him for control of his diabetes further evaluation and IV fluid HOSPITAL COURSE - the patient was admitted to Hospital lab and x-ray studies obtained. Patient was started on sliding scale and blood sugars rapidly came under control. After discussing with patient and family, apparently patient had been on high-dose steroids for treatment of a rash. This may be the etiology of his elevated blood sugars. On 09/27/16 patient developed a temperature of 103 and became tachycardic and hypotensive. He was transferred to intensive care and multiple cultures and labs were obtained. His blood and urine cultures grew gram-positive cocci. Patient had elevated creatinine and be then to admission and was seen in consultation for Dr. Shaikh. His renal studies improve with hydration and treatment. His cultures grew staph aureus and patient was placed on appropriate antibiotics. Patient's condition improved on a daily basis. His renal status was back to his baseline. Patient had no further fever and blood pressures remained stable. He was converted to oral antibiotics and was stable at time of discharge . We'll discharge to home care and arrange follow-up to the office. Will have patient call or return to emergency room if condition worsens problems develop Diagnosis - Discharge Diagnosis (1) septicemia with staph aureus Status: Acute (2) Extreme hyperglycemia Status: Acute (3) Volume depletion secondary to diabetus Status: Acute (4) Renal insufficiency Status: Acute (5) type 2 diabetes mellitus Status: Acute (6) Weakness and weight loss Status: Acute (7) Acute cervical pain Status: Acute (8) Hyperuricemia Status: Chronic Specialty Discharge - Follow Up or Referrals Follow up with: Luis Cedillo DO [Primary Care Provider] - 10/11/16 11:00 am Discharge Plan - Discharge Data Disposition: Disch To Home/Self Care Condition at Discharge: Stable Discharge Diet: diabetic diet Activity: resume usual activities as tolerated Weight Bearing at Discharge: weight bear as tolerated Contact your physician if you experience:: fever over 101, Nausea/Vomiting, Shortness of breath - Discharge Medications New glyBURIDE [Diabeta] 10 mg PO BID W/MEALS #60 tablet Sulfameth/Trimeth 800-160 Tab [Bactrim DS Tab] 1 tablet PO BID #20 tablet Continue Brimonidine 0.2% Oph Soln [Alphagan P 0.2% Oph Soln] 1 drop BOTH EYES TID Dorzolamide HCl/Timolol Maleat [Dorzolamide/Timolol Oph Soln] 1 drop BOTH EYES BEDTIME Allopurinol 300 mg PO DAILY Aspirin [Aspirin EC] 81 mg PO DAILY hydrOXYzine HCl [Hydroxyzine HCl] 25 mg PO QID PRN PRN Reason: Itching Ranitidine Tab [Zantac Tab] 150 mg PO BID Bisoprolol/Hctz 5-6.25 [Ziac 5-6.25] 5 - 6.25 mg PO DAILY cloNIDine TAB [Catapres Tab] 0.2 mg PO BEDTIME - Follow Up or Referral Follow Up: Luis Cedillo DO [Primary Care Provider] - 10/11/16 11:00 am - Forms/Instructions Instructions: Sulfamethoxazole/Trimethoprim (By mouth), Glyburide (By mouth) Exam - Constitutional Vitals: Period Temp Pulse Resp BP Sys/Rolon Pulse Ox Last 24 Hr 99.1 F-100.4 F 97-108 18-20 134-162/63-89 96-98 General appearance: no acute distress - Head Head exam: Present: normal inspection - Eye Pupils: Present: JUNE - ENT ENT exam: Present: normal exam - Neck Neck exam: Present: normal inspection - Respiratory Respiratory exam: Present: clear to auscultation bilaterally - Cardiovascular Cardiovascular exam: Present: irregular rhythm - GI/Abdominal GI/Abdominal exam: Present: normal bowel sounds, soft - Extremities Exam Extremities exam: Present: normal inspection - Back Exam Back exam: Present: normal inspection - Neurological Exam Neurological exam: Present: alert, oriented X3 - Psychiatric Psychiatric exam: Present: normal affect - Skin Skin exam: Present: normal color Discharge Results Labs on day of discharge: Labs from last 24 hours 10/02/16 10/02/16 10/02/16 07:45 05:54 05:54 WBC 16.5 H D RBC 4.17 Hgb 10.9 L Hct 31.7 L MCV 76.0 L MCH 26 L MCHC 34.4 RDW 16.9 Plt Count 149 MPV 11.9 Neut % (Auto) 61.4 Lymph % (Auto) 11.7 L Rutherford % (Auto) 9.5 Eos % (Auto) 11.6 H Baso % (Auto) 0.4 Neut # (Auto) 10.1 H Lymph # (Auto) 1.9 Rutherford # (Auto) 1.6 H Eos # (Auto) 1.9 H Baso # (Auto) 0.1 Total Counted 100 Immature Gran % 5.4 Nucleated RBC % 0.3 Immature Gran # 0.90 Segmented Neutrophils 75 Band Neutrophils 1 Lymphocytes 6 L Monocytes 6 Eosinophils 8 Myelocytes 4 Nucleated RBCs # 0.05 Platelet Estimate Adequate Hypochromasia Slight Sodium 146 H Potassium 3.7 Chloride 112 H Carbon Dioxide 23 Anion Gap 14.7 BUN 27 H Creatinine 3.00 H GFR Calculation 27 BUN/Creatinine Ratio 9.00 Glucose 40 L* POC Glucose 149 H Calculated Osmolality 291.6 Calcium 8.4 L 10/01/16 10/01/16 10/01/16 20:15 16:53 11:25 WBC RBC Hgb Hct MCV MCH MCHC RDW Plt Count MPV Neut % (Auto) Lymph % (Auto) Rutherford % (Auto) Eos % (Auto) Baso % (Auto) Neut # (Auto) Lymph # (Auto) Rutherford # (Auto) Eos # (Auto) Baso # (Auto) Total Counted Immature Gran % Nucleated RBC % Immature Gran # Segmented Neutrophils Band Neutrophils Lymphocytes Monocytes Eosinophils Myelocytes Nucleated RBCs # Platelet Estimate Hypochromasia Sodium Potassium Chloride Carbon Dioxide Anion Gap BUN Creatinine GFR Calculation BUN/Creatinine Ratio Glucose POC Glucose 128 H 113 H 159 H Calculated Osmolality Calcium 10/01/16 09:14 WBC RBC Hgb Hct MCV MCH MCHC RDW Plt Count MPV Neut % (Auto) Lymph % (Auto) Rutherford % (Auto) Eos % (Auto) Baso % (Auto) Neut # (Auto) Lymph # (Auto) Rutherford # (Auto) Eos # (Auto) Baso # (Auto) Total Counted Immature Gran % Nucleated RBC % Immature Gran # Segmented Neutrophils Band Neutrophils Lymphocytes Monocytes Eosinophils Myelocytes Nucleated RBCs # Platelet Estimate Hypochromasia Sodium Potassium Chloride Carbon Dioxide Anion Gap BUN Creatinine GFR Calculation BUN/Creatinine Ratio Glucose POC Glucose 125 H Calculated Osmolality Calcium DS: Provider Date of admission: 09/22/16 09:05 Primary care physician: Luis Cedillo DO Attending physician on admission: Luis Cedillo DO Consults: 09/22/16 10:11 Consult to [facility], Educator [CONS] Routine Reason for Rn Stars: Diabetes Education Consult Comment: new diabetic 09/22/16 13:41 Consult to Diabetes Center, Educator [CONS] Routine Reason for Rn Stars: Diabetes Education Diet Consult Comment: New onset diabetes 09/25/16 08:04 Consult to Physician [CONS] Routine Comment: Renal insufficiency Consulting Provider: Colin Shaikh Person Notified: CAMERON Date Notified: 09/25/16 Time Notified: 08:47 09/28/16 08:55 Consult to Pharmacy [CONS] Routine Reason for Pharmacy Consult: Dose/Manage Vancomycin Discharging clinician: Luis Cedillo DO
[2016-10-02] MEDS: BRIMONIDINE 0.2% OPH SOLN 5 ML BOTTLE BOTH EYES SCH (09:09)
[2016-10-02] MEDS: LORATADINE 10 MG TABLET PO SCH (09:10)
[2016-10-02] MEDS: SULFAMETHOX/TRIMETHOPRIM 800-160 MG TABLET PO SCH (09:10)
[2016-10-02] MEDS: ASPIRIN EC 81 MG TABLET PO SCH (09:10)
[2016-10-02] MEDS: DOCUSATE SODIUM 100 MG CAPSULE PO SCH (09:11)
[2016-10-02] MEDS: DESITIN 4OZ/NYSTATIN 15 GRAM MIXTURE PASTE TOP SCH (09:14)
[2016-10-02] MEDS: PANTOPRAZOLE 40 MG TABLET PO SCH (09:14)
[2016-10-02] MEDS: BISOPROLOL/HCTZ 5-6.25 MG TABLET PO SCH (09:14)
[2016-10-02] MEDS: ALLOPURINOL 300 MG TABLET PO SCH (09:15)
[2016-10-02 10:03] VITALS: BP 158/72
== END 2016-10-02 10:45 | disposition home or self-care (01) | DRG 637 ==
LOC: N.2E 09:05 → N.ICU 09-27 11:41 → N.2E 09-28 08:22
PROVIDERS: ADMIT Family Medicine; ATTEND Family Medicine